=== PATIENT | female | born 1980 | race Caucasian/White ===

== ENCOUNTER 2017-04-07 14:24 | Emergency (ER) | payer SELFPAY ==
[~2017-04-07] VITALS: Ht 157.5 cm; Wt 77.5 kg
[2017-04-07] MEDS ORDERED: IV NORMAL SALINE 50ML 50 ML ONE (15:20)
[2017-04-07] MEDS ORDERED: cefTRIAXone SODIUM 1 GM VIAL IV ONE (15:21)
[2017-04-07] MEDS ORDERED: IV NORMAL SALINE 1,000ML 1,000 ML IV SCH (15:30)
[2017-04-07] MEDS ORDERED: fentaNYL PF 100 MCG/2 ML VIAL IV ONE (15:30)
[2017-04-07] MEDS ORDERED: KETOROLAC 30 MG/ML VIAL. IV ONE (15:30)
[2017-04-07] MEDS ORDERED: ONDANSETRON PF 4 MG/2 ML VIAL. IV ONE (15:30)
--- NOTE | 2017-04-07 15:38 | RAD ---
Examination: CT of the abdomen pelvis without contrast History: History of low back pain, nausea, vomiting, diarrhea. Comparison: None available Technique: Axial CT images of the abdomen pelvis were performed without contrast. Coronal and sagittal reformats are performed RS Compliance Statement: One or more of the following individualized dose reduction techniques were utilized for this examination: 1. Automated exposure control 2. Adjustment of the mA and/or kV according to patient size 3. Use of iterative reconstruction technique Findings: The visualized bibasal lungs grossly appears unremarkable. No evidence of free air identified in the abdomen. The evaluation of the solid organs is limited due to lack of IV contrast. The evaluation of the bowel is limited due to lack of oral contrast. The visualized noncontrasted liver, spleen, adrenals grossly appears unremarkable. The gallbladder is mildly distended. The stomach is mildly distended. The visualized pancreas grossly appears unremarkable. The small bowel is nondilated. The appendix is normal. There is mild thickened appearance of the descending colon and the proximal sigmoid colon without surrounding inflammatory fat stranding could be secondary to nondistention or mild colitis. Mild prominence of the left adnexa. Small amount of free fluid identified in the pelvis. No evidence of intrarenal system calculi or hydronephrosis identified. Urinary bladder is mildly distended. Few sigmoid colon diverticulosis. The caliber of the aorta grossly appears unremarkable. No evidence of lytic bony destructive lesion. Impression: 1. No evidence of intrarenal collecting system calculus or hydronephrosis. 2. Mild thickened appearance of the wall of the descending colon and the proximal sigmoid colon without surrounding fat stranding could be secondary to nondistention or mild colitis. Correlate clinically. 3. Mild prominence of the left adnexa likely uterine fundus tilted to the left. Small amount of free fluid identified in the pelvis.
[2017-04-07 15:42] LABS: BASO % 1 % (0-3); EOS # 0.7 x10^3/uL (0.0-0.7); EOS % 9 % (0-3); HEMATOCRIT 39.5 % (36.0-47.0); HEMOGLOBIN 13.1 g/dL (12.0-15.5); LYMPH # 2.1 x10^3/uL (1.0-4.8); LYMPH % 28 % (24-48); MEAN CORPUSCULAR HEMOGLOBIN 29 pg (25-35); MEAN CORPUSCULAR HGB CONC 33 g/dL (31-37); MEAN CORPUSCULAR VOLUME 88 fL (79-100); MONO # 0.6 x10^3/uL (0.0-1.1); MONO % 8 % (0-9); NEUT # 4.1 x10^3uL (1.8-7.7); NEUT % 55 % (31-73); PLATELET COUNT 213 x10^3/uL (140-400); RED BLOOD COUNT 4.48 x10^6/uL (3.50-5.40); RED CELL DISTRIBUTION WIDTH 13.2 % (11.5-14.5); WHITE BLOOD COUNT 7.5 x10^3/uL (4.0-11.0)
[2017-04-07 15:48] LABS: CREATININE 0.8 mg/dL (0.6-1.0); GFR 81.2; POTASSIUM 3.6 mmol/L (3.5-5.1)
[2017-04-07 15:50] LABS: BILIRUBIN,URINE NEG (NEG); CLARITY,URINE HAZY; COLOR,URINE YELLOW; GLUCOSE,URINE NEG (NEG)
[2017-04-07 15:51] LABS: BACTERIA,URINE FEW /HPF (0-FEW); HYALINE CASTS, URINE OCC /HPF; NITRITE,URINE NEG (NEG); RBC,URINE OCC /HPF (0-2); SQUAMOUS EPITHELIAL CELL,UR MOD /LPF; UROBILINOGEN,URINE 1 mg/dL (0.2 mg/dL)
[2017-04-07 16:04] LABS: BARBITURATES NEG (NEG); BENZODIAZEPINES NEG (NEG); CANNABINOIDS NEG (NEG); COCAINE NEG (NEG); METHADONE NEG (NEG); OPIATES NEG (NEG); PHENCYCLIDINE NEG (NEG)
[2017-04-07 16:06] LABS: AMPHETAMINE/METHAMPHETAMINE POS (NEG)
--- NOTE | 2017-04-07 16:17 | PHYS DOC ---
General Chief Complaint: BACK PAIN OR INJURY Stated Complaint: BACK PAIN Time Seen by MD: 14:27 Source: patient Exam Limitations: no limitations Problems: History of Present Illness Initial Comments Pt is 36/F to ED c/o back pain. Pt states two days severe low back pain as she points across L-S joint. Pt denies trauma, no leg/bowel/bladder/saddle sx. Pt talks fast, very agitated/ anxious appears under influence. Pain radiates down and up her spine, pt reacts as if exquisite pain to light skin touch. No lateralizing ND Timing/Duration: 1-3 hours Severity: severe Modifying Factors: worse with movement Associated Symptoms: other Allergies: Coded Allergies: prochlorperazine (Verified Allergy, Unknown, 04/07/17) Past Medical History Medical History: no pertinent history, other (ovarian cyst, UTI) Surgical History: noncontributory (TL) Social History Smoker: non-smoker Alcohol: none Drugs: none Review of Systems Constitutional: denies chills, denies diaphoresis, denies fever, denies malaise Respiratory: denies cough, denies shortness of breath Cardiovascular: denies chest pain, denies palpitations Gastrointestinal: denies diarrhea, denies nausea, denies vomiting Musculoskeletal: see HPI Psychiatric/Neurological: denies headache, denies numbness, denies paresthesia , denies weakness Physical Exam General Appearance: moderate distress Eyes: bilateral eye normal inspection, bilateral eye PERRL, bilateral eye EOMI Ear, Nose, Throat: hearing grossly normal, normal ENT inspection Neck: non-tender, supple Respiratory: normal breath sounds, no respiratory distress Cardiovascular: normal peripheral pulses, tachycardia Gastrointestinal: non tender, soft Back: no CVA tenderness, no vertebral tenderness Extremities: non-tender, normal inspection Neurologic/Psychiatric: other (dtrs/strength/sensory equal/intact b/l LE, neg SLR b/l) Skin: normal color, warm/dry Orders, Labs, Meds PATIENT: TAMARA RENEE ACCOUNT: [id number] : 1980 LOCATION: ER AGE: 36 SEX: F EXAM STATUS: PRE ER ORD. PHYSICIAN: SHIKHA WILKERSON DO REASON: Bilateral flank pain, nausea, indigestion, diarrhea. r/o stone PROCEDURE: CT ABDOMEN PELVIS WO CONTRAST Examination: CT of the abdomen pelvis without contrast History: History of low back pain, nausea, vomiting, diarrhea. Comparison: None available Technique: Axial CT images of the abdomen pelvis were performed without contrast. Coronal and sagittal reformats are performed RS Compliance Statement: One or more of the following individualized dose reduction techniques were utilized for this examination: 1. Automated exposure control 2. Adjustment of the mA and/or kV according to patient size 3. Use of iterative reconstruction technique Findings: The visualized bibasal lungs grossly appears unremarkable. No evidence of free air identified in the abdomen. The evaluation of the solid organs is limited due to lack of IV contrast. The evaluation of the bowel is limited due to lack of oral contrast. The visualized noncontrasted liver, spleen, adrenals grossly appears unremarkable. The gallbladder is mildly distended. The stomach is mildly distended. The visualized pancreas grossly appears unremarkable. The small bowel is nondilated. The appendix is normal. There is mild thickened appearance of the descending colon and the proximal sigmoid colon without surrounding inflammatory fat stranding could be secondary to nondistention or mild colitis. Mild prominence of the left adnexa. Small amount of free fluid identified in the pelvis. No evidence of intrarenal system calculi or hydronephrosis identified. Urinary bladder is mildly distended. Few sigmoid colon diverticulosis. The caliber of the aorta grossly appears unremarkable. No evidence of lytic bony destructive lesion. Impression: 1. No evidence of intrarenal collecting system calculus or hydronephrosis. 2. Mild thickened appearance of the wall of the descending colon and the proximal sigmoid colon without surrounding fat stranding could be secondary to nondistention or mild colitis. Correlate clinically. 3. Mild prominence of the left adnexa likely uterine fundus tilted to the left. Small amount of free fluid identified in the pelvis. DICTATED AND SIGNED BY: TAYLOR ROONEY MD DATE: 04/07/17 [id number] CC: PCP,NO; SHIKHA WILKERSON DO ~ No GI symptoms c/w colitis. UA +infection with SE contamination Urine Drug Screen +methamphetamine Pt continued to c/o severe back pain requesting pain meds thru ED course. Her disposition changed as UDS results discussed, "...well I really don't do it very often." No pain medication, pt is agreeable. See departure for pt instructions. Departure Time of Disposition: 16:20 Disposition: 01 HOME, SELF-CARE Diagnosis: methamphetamine abuse, pyelonephritis, tobaccoism Condition: GOOD Patient Instructions: Methamphetamine Abuse, Complications, Pyelonephritis, Adult, [id number], Smoking Cessation, Tips For Success Additional Instructions: Discontinue tobacco/methamphetamine abuse, seek medical assistance if necessary. Aggressive hydration with gatorade, water. OTC tylenol/ibuprofen as needed. Rx: cipro, pyridium Follow up with a doctor next week for recheck and urine culture results. Return to ED with new or changing symptoms. SHIKHA WILKERSON DO April 07, 2017 16:17
[2017-04-07] MEDS ORDERED: CIPR500T94 PO (16:19)
[2017-04-07] MEDS ORDERED: PHEN100T82 PO (16:19)
[2017-04-07 16:41] VITALS: BP 148/78
== END 2017-04-07 16:45 | disposition home or self-care (01) ==
LOC: ER 14:24
DX: N12 Tubulo-interstitial nephritis, not specified as acute or chronic (principal); F15.10 Other stimulant abuse, uncomplicated; Z87.440 Personal history of urinary (tract) infections; Z88.8 Allergy status to other drugs, medicaments and biological substances
CPT/HCPCS: 36415; 74176; 80048; 80305; 80320; 81001; 83605; 85027; 87040; 87086; 96365; 96375; 99285; J0696; J1885; J2405; J3010; G0480; G0481; J7030

== ENCOUNTER → 2017-09-09 | Outpatient (CLI) | payer OTHER ==
[~2017-09-09] MED LIST: CIPR500T94 PO; PHEN100T82 PO
--- NOTE | 2017-09-09 15:51 | RAD ---
DATE: 09/09/2017 EXAM: DIGITAL DIAGNOSTIC BILATERAL, BREAST BILATERAL HISTORY: Lumps in the left breast. COMPARISON: None This study was interpreted with the benefit of Computerized Aided Detection (CAD). FINDINGS: Breast Density: HETERO The breast parenchyma Is heterogeneiously dense, which could reduce sensitivity of mammography. Breast parenchyma level C. There areas of concern in the left breast were marked. In the right breast, at approximately the 5:00 position of the breast there is a well-defined oval mass measuring approximately 7 to 8 mm in greatest dimension. In the right breast no mass or suspect calcifications are seen. In the left breast no mass or suspect calcifications are seen. Targeted ultrasound to the areas of concern in both breasts was performed. In addition to images submitted by the technologist a real-time examination was performed by me. No mass or abnormality is seen in either breast in the areas examined. IMPRESSION: Well-defined probably benign mass in the right breast. No abnormality seen in the left breast. If there is a discrete, palpable, abnormality in either breast biopsy may be warranted despite unremarkable imaging. Follow-up mammography of the right breast is suggested in 6 months to document stability BI-RADS CATEGORY: 3 PROBABLE BENIGN FINDING(S-SHORT INTERVAL FOLLOW-UP SUGGESTED RECOMMENDED FOLLOW-UP: 6M 6 MONTH FOLLOW-UP PQRS compliance statement: Patient information was entered into a reminder system with a target due date 03/10/2018 for the next mammogram. Mammography is a sensitive method for finding small breast cancers, but it does not detect them all and is not a substitute for careful clinical examination. A negative mammogram does not negate a clinically suspicious finding and should not result in delay in biopsying a clinically suspicious abnormality. "Our facility is accredited by the [employer] Mammography Program."
== END | disposition home or self-care (01) ==
LOC: MAMMO 13:21
PROVIDERS: ATTEND Nurse Practitioner
DX: N63.20 Unspecified lump in the left breast, unspecified quadrant (principal); Z80.3 Family history of malignant neoplasm of breast
CPT/HCPCS: 76641; G0204; 77066